=== PATIENT | male | born 1945 | race Caucasian/White ===

== ENCOUNTER 2017-10-21 20:30 | Inpatient (IN) | payer MEDICARE, OTHER ==
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
[2017-10-21] MEDS ORDERED: Sodium Chloride 0.9% 1,000 ML ONE (22:27)
[2017-10-21 22:28] LABS: BASO % 0.5 % (0.0-2.0); EOS # 0.1 K/uL (0.0-0.7); EOS % 1.4 % (0.0-4.0); HEMOGLOBIN 13.3 g/dL (12.0-18.0); LYMPH # 0.9 K/uL (1.0-4.3); LYMPH % 9.5 % (20.0-40.0); MEAN CELL VOLUME 97.6 fL (80.0-94.0); MEAN CORPUSCULAR HEMOGLOBIN 33.2 pg (27.0-31.0); MEAN CORPUSCULAR HGB CONC 34.1 g/dL (33.0-37.0); MEAN PLATELET VOLUME 8.3 fL (7.2-11.7); MONO # 0.5 K/uL (0.0-0.8); MONO % 5.1 % (0.0-10.0); NEUT # 7.6 K/uL (1.8-7.0); NEUT % 83.5 % (50.0-75.0); NRBC % 0.1 % (0.0-2.0); PLATELET COUNT 206 K/uL (130-400); RBC 4.01 Mil/uL (4.40-5.90); RED CELL DISTRIBUTION WIDTH 13.6 % (11.5-14.5); WHITE BLOOD COUNT 9.1 K/uL (4.8-10.8)
[2017-10-21] MEDS: Sodium Chloride 0.9% 1,000 ML IV SCH (22:28)
[2017-10-21 22:42] LABS: ALB/GLOB RATIO 1.2 (1.0-2.1); ALBUMIN 3.8 g/dL (3.5-5.0); ALT/SGPT 18 U/L (21-72); AST/SGOT 25 U/L (17-59); BLOOD UREA NITROGEN 11 mg/dL (9-20); CALCIUM 9.1 mg/dl (8.6-10.4); GFR AFRICAN-AMERICAN > 60; GFR NON-AFRICAN AMERICAN > 60
[2017-10-21 23:07] LABS: LYMPHOCYTE 8 % (20-40); MONOCYTE 7 % (0-10); NEUTROPHIL 81 % (50-75); PLATELET ESTIMATE NORMAL (NORMAL); REACTIVE LYMPHOCYTES 4 % (0-0); TOTAL CELLS COUNTED 100
[2017-10-21 23:09] LABS: ANISOCYTOSIS SLIGHT; OVALOCYTES SLIGHT; POIKILOCYTOSIS SLIGHT; TEARDROP CELLS SLIGHT
[2017-10-22] MEDS ORDERED: HYDROmorphone 0.5 mg/0.5 ml ISec IVP PRN (07:59)
[2017-10-22] MEDS: Sodium Chloride 0.9% 1,000 ML IV SCH ×2 (08:28→18:15)
--- NOTE | 2017-10-22 08:51 | RAD ---
Chest x-ray single frontal view History: Shortness of breath. Comparison: None available. Findings: Hyperinflation suggestive for COPD and or emphysematous changes. Biapical pleural thickening with upper lobe granulomatous changes. Bilateral hilar prominence. Tortuous aorta. Calcification in the aorta. Degenerative changes in the spine and shoulders. Impression: Hyperinflation suggestive for COPD and or emphysematous changes. Biapical pleural thickening with upper lobe granulomatous changes. Bilateral hilar prominence. Tortuous aorta. Calcification in the aorta. Degenerative changes in the spine and shoulders.
[2017-10-22] MEDS: Albuterol-Ipratrop 3 mg / 0.5 (3 ml) UD INH SCH ×4 (09:00→23:40)
--- NOTE | 2017-10-22 09:01 | RAD ---
PROCEDURE: HISTORY: fall COMPARISON: NONE TECHNIQUE: AP view of the pelvis and applicable frog leg views obtained. FINDINGS: A comminuted left intertrochanteric fracture is present. Per these mainly frontal images no marked displacement is seen. . 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 Atherosclerotic vascular calcifications present. . IMPRESSION: Left intertrochanteric comminuted fracture. No dislocation appreciated
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
[2017-10-22] MEDS ORDERED: Enoxaparin 40 mg Syringe SC SCH (10:00)
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
[2017-10-22] MEDS: Pantoprazole 40 mg EC Tab PO SCH (11:15)
[2017-10-22 11:26] LABS: HEMOGLOBIN 11.5 g/dL (12.0-18.0); MEAN CORPUSCULAR HEMOGLOBIN 33.9 pg (27.0-31.0); MEAN CORPUSCULAR HGB CONC 34.6 g/dL (33.0-37.0); MEAN PLATELET VOLUME 8.5 fL (7.2-11.7); RBC 3.41 Mil/uL (4.40-5.90); RED CELL DISTRIBUTION WIDTH 13.6 % (11.5-14.5); WHITE BLOOD COUNT 10.2 K/uL (4.8-10.8)
[2017-10-22 11:33] LABS: INR 1.1
[2017-10-22 11:43] LABS: BLOOD UREA NITROGEN 10 mg/dL (9-20); CALCIUM 8.4 mg/dl (8.6-10.4); GFR AFRICAN-AMERICAN > 60; GFR NON-AFRICAN AMERICAN > 60
[2017-10-22] MEDS ORDERED: Absorbable Gelatin Sponge Size 100 ONE (13:12)
[2017-10-22] MEDS ORDERED: ceFAZolin IV 1 gm in Dextrose 2 GM/100 ML BAG IVPB ONE (13:12)
[2017-10-22] MEDS ORDERED: Thrombin Topical 20,000 Intl Units Spray Kit TOP ONE (13:12)
--- NOTE | 2017-10-22 13:41 | CP.PCM.PN ---
<Cindy Augustin - Last Filed: 10/22/17 18:28> Subjective - Date & Time of Evaluation Date of Evaluation: 10/22/17 Time of Evaluation: 10:50 - Subjective Subjective: PGY-[address] Dixon Patient seen and examined at bedside. Patient continues to complaint of left hip pain. Patient understand that he is scheduled for OR today for orthopedic surgery today. Patient denies headache, dizziness, shortness of breath, chest pain, nausea, or vomiting. Objective - Vital Signs/Intake and Output Vital Signs (last 24 hours): Temp Pulse Resp BP Pulse Ox 97.5 F L 77 20 99/63 L 99 10/22/17 07:25 10/22/17 09:01 10/22/17 07:25 10/22/17 07:25 10/22/17 07:25 - Medications Medications: Current Medications Albuterol/Ipratropium (Duoneb 3 Mg/0.5 Mg (3 Ml) Ud) 3 ml INH RQ4 [facility] Last Admin: 10/22/17 13:17 Dose: 3 ml Hydromorphone HCl (Dilaudid) 0.5 mg IVP Q4H PRN PRN Reason: Pain, moderate (4-7) Last Admin: 10/22/17 08:22 Dose: 0.5 mg Sodium Chloride (Sodium Chloride 0.9%) 1,000 mls @ 100 mls/hr IV .Q10H [facility] Last Admin: 10/22/17 08:28 Dose: 100 mls/hr Pantoprazole Sodium (Protonix Ec Tab) 40 mg PO DAILY [facility] Last Admin: 10/22/17 11:15 Dose: Not Given Pneumococcal Polyvalent Vaccine (Pneumovax 23 Vaccine) 0.5 ml IM .ONCE ONE Stop: 10/23/17 10:01 - Labs Labs: 10/22/17 11:17 10/22/17 11:17 PT 12.0 SECONDS (9.7-12.2) 10/22/17 11:17 INR 1.1 10/22/17 11:17 APTT 27 SECONDS (21-34) 10/22/17 11:17 - Constitutional Appears: No Acute Distress - Head Exam Head Exam: ATRAUMATIC - Eye Exam Pupil Exam: NORMAL ACCOMODATION - ENT Exam ENT Exam: Mucous Membranes Moist - Neck Exam Neck Exam: Normal Inspection - Respiratory Exam Respiratory Exam: Clear to Ausculation Bilateral, NORMAL BREATHING PATTERN - Cardiovascular Exam Cardiovascular Exam: REGULAR RHYTHM, +S1, +S2. absent: Murmur - GI/Abdominal Exam GI & Abdominal Exam: Soft, Normal Bowel Sounds - Extremities Exam Extremities Exam: Tenderness. absent: Full ROM Additional comments: Left hip tenderness, limited exam due to pain - Neurological Exam Neurological Exam: Alert, Awake, Oriented x3 - Psychiatric Exam Psychiatric exam: Normal Affect, Normal Mood - Skin Skin Exam: Warm Assessment and Plan - Assessment and Plan (Free Text) Assessment: Left intertrochanteric fracture -Hip x-ray showed left intertrochanteric comminuted fracture. No dislocation appreciated. -Orthopedic surgery consult, Dr. Alba help appreciated -Planned for OR today -Cardiac clearance by cardiology -Dilaudid 0.5mg IV Q4hr prn -IVF NS @100ml/hr Prophylactic measures -Protonix 40mg po -Lovenox 40mg sc Case discussed with Dr. Dixon All management per Dr. Dixon <Mary Dixon S - Last Filed: 10/22/17 22:25> Objective - Vital Signs/Intake and Output Vital Signs (last 24 hours): Temp Pulse Resp BP Pulse Ox 98.4 F 125 H 18 99/60 L 94 L 10/22/17 20:15 10/22/17 20:15 10/22/17 20:15 10/22/17 20:15 10/22/17 20:15 Intake and Output: 10/22/17 10/23/17 18:59 06:59 Intake Total 500 Balance 500 - Medications Medications: Current Medications Albuterol/Ipratropium (Duoneb 3 Mg/0.5 Mg (3 Ml) Ud) 3 ml INH RQ4 [facility] Last Admin: 10/22/17 18:10 Dose: 3 ml Diphenhydramine HCl (Benadryl) 25 mg IVP STAT STA Stop: 10/22/17 22:24 Docusate Sodium (Colace) 100 mg PO BID [facility] Last Admin: 10/22/17 20:15 Dose: Not Given Enoxaparin Sodium (Lovenox) 40 mg SC Q24H [facility] Hydromorphone HCl (Dilaudid) 0.5 mg IVP Q4H PRN PRN Reason: Pain, severe (8-10) Sodium Chloride (Sodium Chloride 0.9%) 1,000 mls @ 100 mls/hr IV .Q10H [facility] Last Admin: 10/22/17 18:15 Dose: Not Given Cefazolin Sodium 2 gm/ Sodium (Chloride) 100 mls @ 100 mls/hr IVPB Q8H [facility] PRN Reason: Protocol Stop: 10/23/17 06:59 Last Admin: 10/22/17 21:31 Dose: 100 mls/hr Oxycodone/Acetaminophen (Percocet 5/325 Mg Tab) 1 tab PO Q4 PRN PRN Reason: Pain, moderate (4-7) Stop: 10/25/17 17:35 Pantoprazole Sodium (Protonix Ec Tab) 40 mg PO DAILY [facility] Last Admin: 10/22/17 11:15 Dose: Not Given Pneumococcal Polyvalent Vaccine (Pneumovax 23 Vaccine) 0.5 ml IM .ONCE ONE Stop: 10/23/17 10:01 - Labs Labs: 10/22/17 11:17 10/22/17 11:17 PT 12.0 SECONDS (9.7-12.2) 10/22/17 11:17 INR 1.1 10/22/17 11:17 APTT 27 SECONDS (21-34) 10/22/17 11:17 Attending/Attestation - Attestation I have personally seen and examined this patient.: Yes I have fully participated in the care of the patient.: Yes I have reviewed all pertinent clinical information, including history, physical exam and plan: Yes Notes (Text): 10/22/17 22:25 case seen an dd.w staff and resident.
[2017-10-22 13:42] LABS: URINE BACTERIA RARE (<OCC); URINE BILIRUBIN NEGATIVE (NEGATIVE); URINE BLOOD NEGATIVE (NEGATIVE); URINE CLARITY Clear (Clear); URINE COLOR Yellow (YELLOW); URINE GLUCOSE (UA) NORMAL (Normal); URINE LEUKOCYTE ESTERASE NEG Leu/uL (Negative); URINE PROTEIN NEGATIVE (NEGATIVE)
[2017-10-22] MEDS ORDERED: Propofol 10 mg/ml Inj (20 ML) ONE (14:17)
[2017-10-22] MEDS ORDERED: Phenylephrine 10 mg/ml Inj ONE (14:21)
[2017-10-22] MEDS ORDERED: ePHEDrine 50 mg/ml Inj ONE (14:25)
[2017-10-22] MEDS ORDERED: Bacitracin 50,000 UNIT in Sodium Chloride 0.9% Irrig 1,000 ML IR SCH (14:30)
[2017-10-22] MEDS ORDERED: Lactated Ringer's 1,000 ML IV ONE ×3 (14:38→18:30)
[2017-10-22] MEDS ORDERED: Bupivacaine HCl 0.25% PF (10 ml) Inj ONE (14:41)
[2017-10-22] MEDS ORDERED: Morphine 1 mg/ml preservative-free Inj(Duramorph) ONE (14:41)
--- NOTE | 2017-10-22 15:33 | CARD ---
APPROVED REPORT EXAM: Two-dimensional and M-mode echocardiogram with Doppler and color Doppler. Other Information Quality : GoodRhythm : INDICATION Pre-Op CARDIAC CLEARANCE, FRACTURE LEFT HIP 2D DIMENSIONS IVSd0.7 (0.7-1.1cm)LVDd3.9 (3.9-5.9cm) PWd0.7 (0.7-1.1cm)LVDs3.1 (2.5-4.0cm) FS (%) 21.4 % M-Mode DIMENSIONS RVDd1.78 (2.1-3.2cm)Left Atrium (MM)2.33 (2.5-4.0cm) IVSd0.85 (0.7-1.1cm)Aortic Root2.79 (2.2-3.7cm) LVDd3.67 (4.0-5.6cm)Aortic Cusp Exc.2.13 (1.5-2.0cm) PWd0.85 (0.7-1.1cm)FS (%) 49 % LVDs1.86 (2.0-3.8cm)LVEF (%)81 (>50%) Mitral Valve MV E Yuppaixr58.5cm/sMV A Dtzcxjbf70.6cm/sE/A ratio0.7 TDI E/Lateral E'0.0E/Medial E'0.0 Tricuspid Valve TR Peak Euzoqdid907hw/sTR Peak [id number] LEFT VENTRICLE The left ventricle is normal size. There is borderline concentric left ventricular hypertrophy. The left ventricular function is normal. The left ventricular ejection fraction is within the normal range. There is normal LV segmental wall motion. Transmitral Doppler flow pattern is Grade I-abnormal relaxation pattern. RIGHT VENTRICLE The right ventricle is normal size. There is normal right ventricular wall thickness. The right ventricular systolic function is normal. ATRIA The left atrium size is normal. The right atrium size is normal. The atrial septum is aneurysmal. AORTIC VALVE The aortic valve is moderately thickened. No aortic regurgitation is present. There is no aortic valvular stenosis. MITRAL VALVE The mitral valve is moderately thickened. There is no mitral valve stenosis. Mitral regurgitation is trace. TRICUSPID VALVE The tricuspid valve is normal in structure. There is trace tricuspid regurgitation. PULMONIC VALVE The pulmonary valve is normal in structure. There is no pulmonic valvular regurgitation. GREAT VESSELS The aortic root is normal in size. The IVC is normal in size and collapses >50% with inspiration. PERICARDIAL EFFUSION There is no pericardial effusion. <Conclusion> The left ventricle is normal size. There is borderline concentric left ventricular hypertrophy. The left ventricular function is normal. The left ventricular ejection fraction is within the normal range. There is normal LV segmental wall motion. Transmitral Doppler flow pattern is Grade I-abnormal relaxation pattern.
--- NOTE | 2017-10-22 16:19 | CARD ---
APPROVED REPORT EKG Measurement Heart [id number] <Conclusion> Normal sinus rhythm Normal ECG
[2017-10-22] MEDS ORDERED: Neostigmine Methylsulfate 3mg/3ml Syringe IV ONE (16:31)
--- NOTE | 2017-10-22 16:48 | CP.PCM.HP ---
Past Patient History - Past Medical History & Family History Past Medical History?: Yes - Past Social History Smoking Status: Heavy Smoker > 10 Cigarettes Daily - CARDIAC Hx Cardiac Disorders: No - PULMONARY Hx Respiratory Disorders: Yes Hx Emphysema: Yes - NEUROLOGICAL Hx Neurological Disorder: No - HEENT Hx HEENT Problems: No - RENAL Hx Chronic Kidney Disease: No - ENDOCRINE/METABOLIC Hx Endocrine Disorders: No - HEMATOLOGICAL/ONCOLOGICAL Hx Blood Disorders: No - INTEGUMENTARY Hx Dermatological Problems: No - MUSCULOSKELETAL/RHEUMATOLOGICAL Hx Musculoskeletal Disorders: No Hx Falls: No - GASTROINTESTINAL Hx Gastrointestinal Disorders: No - GENITOURINARY/GYNECOLOGICAL Hx Genitourinary Disorders: No - PSYCHIATRIC Hx Substance Use: No Other/Comment: Heavy smoker and ETOH socially - SURGICAL HISTORY Hx Surgeries: Yes Hx Herniorrhaphy: Yes - ANESTHESIA Hx Anesthesia: Yes Hx Anesthesia Reactions: No Hx Malignant Hyperthermia: No Has any member of the family had a problem w/ anesthesia?: No Meds Allergies/Adverse Reactions: Allergies Allergy/AdvReac Type Severity Reaction Status Date / Time No Known Allergies Allergy Unverified 10/21/17 20:56 Physical Exam - Constitutional Appears: Well - Head Exam Head Exam: ATRAUMATIC, NORMAL INSPECTION, NORMOCEPHALIC - Eye Exam Eye Exam: EOMI, Normal appearance, PERRL Pupil Exam: NORMAL ACCOMODATION, PERRL - ENT Exam ENT Exam: Mucous Membranes Moist, Normal Exam - Neck Exam Neck exam: Positive for: Normal Inspection - Respiratory Exam Respiratory Exam: Decreased Breath Sounds - Cardiovascular Exam Cardiovascular Exam: REGULAR RHYTHM, +S1, +S2 - GI/Abdominal Exam GI & Abdominal Exam: Diminished Bowel Sounds, Soft - Rectal Exam Rectal Exam: Deferred Results - Vital Signs Recent Vital Signs: Last Vital Signs Temp 97.5 F L 10/22/17 07:25 Pulse 77 10/22/17 09:01 Resp 20 10/22/17 07:25 BP 99/63 L 10/22/17 07:25 Pulse Ox 99 10/22/17 07:25 - Labs Result Diagrams: 10/22/17 11:17 10/22/17 11:17 Labs: Laboratory Results - last 24 hr 10/21/17 10/21/17 10/22/17 22:18 22:18 11:17 WBC 9.1 RBC 4.01 L Hgb 13.3 Hct 39.2 MCV 97.6 H MCH 33.2 H MCHC 34.1 RDW 13.6 Plt Count 206 MPV 8.3 Neut % (Auto) 83.5 H Lymph % (Auto) 9.5 L [place] % (Auto) 5.1 Eos % (Auto) 1.4 Baso % (Auto) 0.5 Neut # (Auto) 7.6 H Lymph # (Auto) 0.9 L [place] # (Auto) 0.5 Eos # (Auto) 0.1 Baso # (Auto) 0.0 Neutrophils % (Manual) 81 H Lymphocytes % (Manual) 8 L Reactive Lymphs % 4 H Monocytes % (Manual) 7 Platelet Estimate Normal Poikilocytosis (manual Slight Anisocytosis (manual) Slight Tear Drop Cells Slight Ovalocytes Slight PT INR APTT Sodium 140 Potassium 4.4 Chloride 103 Carbon Dioxide 24 Anion Gap 18 BUN 11 Creatinine 0.7 L Est GFR ( Amer) > 60 Est GFR (Non-Af Amer) > 60 Random Glucose 104 Calcium 9.1 Total Bilirubin 0.2 AST 25 ALT 18 L Alkaline Phosphatase 69 Total Protein 6.9 Albumin 3.8 Globulin 3.1 Albumin/Globulin Ratio 1.2 Urine Color Urine Clarity Urine pH Ur Specific [place] Urine Protein Urine Glucose (UA) Urine Ketones Urine Blood Urine Nitrate Urine Bilirubin Urine Urobilinogen Ur Leukocyte Esterase Urine WBC (Auto) Urine RBC (Auto) Urine Bacteria Blood Type O POSITIVE Antibody Screen Positive Antibody Identification Non Specific Antibody 10/22/17 10/22/17 10/22/17 11:17 11:17 11:17 WBC 10.2 RBC 3.41 L Hgb 11.5 L Hct 33.4 L MCV 98.0 H MCH 33.9 H MCHC 34.6 RDW 13.6 Plt Count 178 MPV 8.5 Neut % (Auto) Lymph % (Auto) [place] % (Auto) Eos % (Auto) Baso % (Auto) Neut # (Auto) Lymph # (Auto) [place] # (Auto) Eos # (Auto) Baso # (Auto) Neutrophils % (Manual) Lymphocytes % (Manual) Reactive Lymphs % Monocytes % (Manual) Platelet Estimate Poikilocytosis (manual Anisocytosis (manual) Tear Drop Cells Ovalocytes PT 12.0 INR 1.1 APTT 27 Sodium 139 Potassium 4.1 Chloride 104 Carbon Dioxide 27 Anion Gap 13 BUN 10 Creatinine 0.6 L Est GFR ( Amer) > 60 Est GFR (Non-Af Amer) > 60 Random Glucose 116 H Calcium 8.4 L Total Bilirubin AST ALT Alkaline Phosphatase Total Protein Albumin Globulin Albumin/Globulin Ratio Urine Color Urine Clarity Urine pH Ur Specific [place] Urine Protein Urine Glucose (UA) Urine Ketones Urine Blood Urine Nitrate Urine Bilirubin Urine Urobilinogen Ur Leukocyte Esterase Urine WBC (Auto) Urine RBC (Auto) Urine Bacteria Blood Type Antibody Screen Antibody Identification 10/22/17 13:35 WBC RBC Hgb Hct MCV MCH MCHC RDW Plt Count MPV Neut % (Auto) Lymph % (Auto) [place] % (Auto) Eos % (Auto) Baso % (Auto) Neut # (Auto) Lymph # (Auto) [place] # (Auto) Eos # (Auto) Baso # (Auto) Neutrophils % (Manual) Lymphocytes % (Manual) Reactive Lymphs % Monocytes % (Manual) Platelet Estimate Poikilocytosis (manual Anisocytosis (manual) Tear Drop Cells Ovalocytes PT INR APTT Sodium Potassium Chloride Carbon Dioxide Anion Gap BUN Creatinine Est GFR ( Amer) Est GFR (Non-Af Amer) Random Glucose Calcium Total Bilirubin AST ALT Alkaline Phosphatase Total Protein Albumin Globulin Albumin/Globulin Ratio Urine Color Yellow Urine Clarity Clear Urine pH 6.0 Ur Specific [place] 1.024 Urine Protein Negative Urine Glucose (UA) Normal Urine Ketones Trace Urine Blood Negative Urine Nitrate Negative Urine Bilirubin Negative Urine Urobilinogen 2.0 Ur Leukocyte Esterase Neg Urine WBC (Auto) 1 Urine RBC (Auto) 2 Urine Bacteria Rare Blood Type Antibody Screen Antibody Identification Assessment & Plan - Assessment and Plan (Free Text) Plan: Left intertrochanteric fracture -Hip x-ray showed left intertrochanteric comminuted fracture. No dislocation appreciated. -Orthopedic surgery consult, Dr. Alba help appreciated -Planned for OR today -Cardiac clearance by cardiology -Dilaudid 0.5mg IV Q4hr prn -IVF NS @100ml/hr Prophylactic measures -Protonix 40mg po -Lovenox 40mg sc
--- NOTE | 2017-10-22 16:57 | PCM.SURG1 ---
Surgeon's Initial Post Op Note - Surgeon's Notes Surgeon: Anjali Cast Associate: BALDEMAR Bartlett Type of Anesthesia: General Endo, Spinal Anesthesia Administered By: DR archer Pre-Operative Diagnosis: Displaced/comminuted intertrochanteric fx L hip Operative Findings: as above Post-Operative Diagnosis: as above Operation Performed: ORIF (interlocking/intramedullary hallie) L intertrochanteric femur fx. closed reduction fx fragments. positioning of fluoro/interpretation of video images Specimen/Specimens Removed: N/A Estimated Blood Loss: EBL {In ML}: 85 Blood Products Given: N/A Drains Used: No Drains Post-Op Condition: Good Date of Surgery/Procedure: 10/22/17 Time of Surgery/Procedure: 15:50 (14:38- [email or web address] indcution time/time in room )
[2017-10-22] MEDS: HYDROmorphone 0.5 mg/0.5 ml ISec IVP PRN ×2 (18:04→18:19)
[2017-10-22] MEDS ORDERED: Midazolam 2 MG/2 ML VIAL IVP ONE (18:28)
[2017-10-22] MEDS ORDERED: Midazolam 2 MG/2 ML VIAL ONE (18:34)
[2017-10-22] MEDS: ceFAZolin 2 GM in Sodium Chloride 0.9% 100 ML IVPB SCH (21:31)
[2017-10-22] MEDS ORDERED: DiphenhydrAMINE 50 mg/ml Inj IVP STA (22:23)
[2017-10-23] MEDS: Albuterol-Ipratrop 3 mg / 0.5 (3 ml) UD INH SCH ×6 (03:13→23:44)
[2017-10-23] MEDS: Sodium Chloride 0.9% 1,000 ML IV SCH ×3 (04:23→14:15)
[2017-10-23] MEDS: ceFAZolin 2 GM in Sodium Chloride 0.9% 100 ML IVPB SCH (05:24)
[2017-10-23 07:36] LABS: MEAN CELL VOLUME 97.9 fL (80.0-94.0); MEAN CORPUSCULAR HEMOGLOBIN 33.8 pg (27.0-31.0); MEAN CORPUSCULAR HGB CONC 34.6 g/dL (33.0-37.0); MEAN PLATELET VOLUME 8.4 fL (7.2-11.7); RBC 2.4 Mil/uL (4.40-5.90); RED CELL DISTRIBUTION WIDTH 13.4 % (11.5-14.5)
[2017-10-23 07:41] LABS: BLOOD UREA NITROGEN 10 mg/dL (9-20); CALCIUM 7.8 mg/dl (8.6-10.4); GFR AFRICAN-AMERICAN > 60; GFR NON-AFRICAN AMERICAN > 60
[2017-10-23 07:48] LABS: HEMOGLOBIN 8.1 g/dL (12.0-18.0)
--- NOTE | 2017-10-23 09:43 | RAD ---
PROCEDURE: Intraoperative Fluoroscopy. HISTORY: FX FINDINGS: Fluoroscopic assistance was provided. 72.7 seconds fluoroscopy time utilized during this procedure. Radiation dose: Total DLP = 4.45 mGy Please refer to the operative report from ANGELA Anderson.
--- NOTE | 2017-10-23 09:49 | CP.PCM.PN ---
Subjective - Date & Time of Evaluation Date of Evaluation: 10/23/17 Time of Evaluation: 09:45 - Subjective Subjective: Patent states he has a lot of pain in his left leg, but refused the pain medication. Denies CP/SOB/dizziness. Objective - Vital Signs/Intake and Output Vital Signs (last 24 hours): Temp Pulse Resp BP Pulse Ox 97.7 F 110 H 18 93/44 L 97 10/23/17 07:20 10/23/17 07:20 10/23/17 07:20 10/23/17 07:20 10/23/17 07:20 Intake and Output: 10/23/17 10/23/17 06:59 18:59 Intake Total 640 Output Total 970 Balance -330 - Medications Medications: Current Medications Albuterol/Ipratropium (Duoneb 3 Mg/0.5 Mg (3 Ml) Ud) 3 ml INH RQ4 [facility] Last Admin: 10/23/17 07:18 Dose: 3 ml Docusate Sodium (Colace) 100 mg PO BID [facility] Last Admin: 10/22/17 20:15 Dose: Not Given Enoxaparin Sodium (Lovenox) 40 mg SC Q24H [facility] Ergocalciferol (Drisdol 50,000 Intl Units Cap) 1 cap PO Q7D [facility] Hydromorphone HCl (Dilaudid) 0.5 mg IVP Q4H PRN PRN Reason: Pain, severe (8-10) Sodium Chloride (Sodium Chloride 0.9%) 1,000 mls @ 100 mls/hr IV .Q10H [facility] Last Admin: 10/23/17 05:26 Dose: 100 mls/hr Oxycodone/Acetaminophen (Percocet 5/325 Mg Tab) 1 tab PO Q4 PRN PRN Reason: Pain, moderate (4-7) Stop: 10/25/17 17:35 Pantoprazole Sodium (Protonix Ec Tab) 40 mg PO DAILY [facility] Last Admin: 10/22/17 11:15 Dose: Not Given Pneumococcal Polyvalent Vaccine (Pneumovax 23 Vaccine) 0.5 ml IM .ONCE ONE Stop: 10/23/17 10:01 - Labs Labs: 10/23/17 07:15 10/23/17 07:15 PT 12.0 SECONDS (9.7-12.2) 10/22/17 11:17 INR 1.1 10/22/17 11:17 APTT 27 SECONDS (21-34) 10/22/17 11:17 - Extremities Exam Additional comments: Left hip: Dressing intact, no visible drainage, +DP/PT pulses, calves soft NT neg homans + ROM ankle/toes Assessment and Plan (1) Closed intertrochanteric fracture of left femur Assessment & Plan: POD#1 s/p left hip ORIF PT/OT VTE proph d/c planning pt out of bed currently labs in am d/w Dr. Alba, agrees with above Status: Acute
[2017-10-23] MEDS ORDERED: Ergocalciferol 50,000 Intl Units Cap PO SCH (10:00)
[2017-10-23] MEDS ORDERED: Pneumococcal 23-Valent Vaccine IM ONE (10:00)
[2017-10-23] MEDS: Pantoprazole 40 mg EC Tab PO SCH (10:32)
--- NOTE | 2017-10-23 10:50 | CP.PCM.PN ---
Subjective - Date & Time of Evaluation Date of Evaluation: 10/23/17 Time of Evaluation: 10:10 - Subjective Subjective: PGY-[address] Dixon Patient seen and examined at bedside. Overnight patient reported to have itchiness and difficulty to urinate. Patient was given Benadryl and urinary straight cath. This morning patient complains of pain at the surgical site. Patient denies fever, chills, headache, shortness of breath, chest pain, nausea , or vomiting. Objective - Vital Signs/Intake and Output Vital Signs (last 24 hours): Temp Pulse Resp BP Pulse Ox 97.7 F 110 H 18 93/44 L 97 10/23/17 07:20 10/23/17 07:20 10/23/17 07:20 10/23/17 07:20 10/23/17 07:20 Intake and Output: 10/23/17 10/23/17 06:59 18:59 Intake Total 640 Output Total 970 Balance -330 - Medications Medications: Current Medications Albuterol/Ipratropium (Duoneb 3 Mg/0.5 Mg (3 Ml) Ud) 3 ml INH RQ4 [facility] Last Admin: 10/23/17 07:18 Dose: 3 ml Docusate Sodium (Colace) 100 mg PO BID [facility] Last Admin: 10/23/17 10:31 Dose: 100 mg Enoxaparin Sodium (Lovenox) 40 mg SC Q24H [facility] Ergocalciferol (Drisdol 50,000 Intl Units Cap) 1 cap PO Q7D [facility] Last Admin: 10/23/17 10:38 Dose: 1 cap Hydromorphone HCl (Dilaudid) 0.5 mg IVP Q4H PRN PRN Reason: Pain, severe (8-10) Sodium Chloride (Sodium Chloride 0.9%) 1,000 mls @ 100 mls/hr IV .Q10H [facility] Last Admin: 10/23/17 05:26 Dose: 100 mls/hr Oxycodone/Acetaminophen (Percocet 5/325 Mg Tab) 1 tab PO Q4 PRN PRN Reason: Pain, moderate (4-7) Stop: 10/25/17 17:35 Pantoprazole Sodium (Protonix Ec Tab) 40 mg PO DAILY [facility] Last Admin: 10/23/17 10:32 Dose: 40 mg - Labs Labs: 10/23/17 07:15 10/23/17 07:15 PT 12.0 SECONDS (9.7-12.2) 10/22/17 11:17 INR 1.1 10/22/17 11:17 APTT 27 SECONDS (21-34) 10/22/17 11:17 - Constitutional Appears: Non-toxic, No Acute Distress - Head Exam Head Exam: ATRAUMATIC, NORMAL INSPECTION - Eye Exam Eye Exam: EOMI - ENT Exam ENT Exam: Mucous Membranes Moist Additional comments: poor dentition - Neck Exam Neck Exam: Full ROM - Respiratory Exam Respiratory Exam: Clear to Ausculation Bilateral, NORMAL BREATHING PATTERN - Cardiovascular Exam Cardiovascular Exam: REGULAR RHYTHM, +S1, +S2 - GI/Abdominal Exam GI & Abdominal Exam: Soft, Normal Bowel Sounds. absent: Tenderness - Extremities Exam Additional comments: left hip dressing clean, dry, and intact - Neurological Exam Neurological Exam: Alert, Awake, Oriented x3 - Psychiatric Exam Psychiatric exam: Normal Affect, Normal Mood - Skin Skin Exam: Dry, Warm Assessment and Plan - Assessment and Plan (Free Text) Assessment: Left intertrochanteric fracture -Hip x-ray showed left intertrochanteric comminuted fracture. No dislocation appreciated. -Orthopedic surgery consult, Dr. Alba help appreciated -Planned for OR today -Cardiac clearance by cardiology -Dilaudid 0.5mg IV Q4hr prn -IVF NS @100ml/hr Difficulty of urination -Urinary straight cath prn, Bladder scan >200cc -Flomax 0.4mg po Prophylactic measures -Protonix 40mg po -Lovenox 40mg sc Case discussed with Dr. Dixon All management per Dr. Dixon
--- NOTE | 2017-10-23 12:35 | RAD ---
PROCEDURE: Left Hip X-ray Radiographs. Poor HISTORY: pt in pacu s/p IM nail COMPARISON: Preoperative examination 10/21/2017 FINDINGS: BONES: Status post open reduction internal fixation of comminuted intertrochanteric fracture proximal left femur. Intramedullary hardware reduces to anatomic Alignment major fracture fragments. JOINTS: No evidence of subluxation or dislocation. SOFT TISSUES: Normal. OTHER FINDINGS: None. IMPRESSION: Satisfactory postoperative status
--- NOTE | 2017-10-23 12:36 | RAD ---
PROCEDURE: Left femur HISTORY: pt in PACU s/p IM nail COMPARISON: Preoperative examination 10/21/2017. TECHNIQUE: Standard protocol for this study/examination. FINDINGS: Satisfactory open reduction internal fixation of comminuted intertrochanteric fracture left femur. The intramedullary hardware in satisfactory position. IMPRESSION: Satisfactory postoperative status.
[2017-10-23] MEDS: Oxycodone/Acetaminophen 5/325 mg Tab PO PRN ×2 (13:02→18:07)
--- NOTE | 2017-10-23 13:41 | CP.PCM.PN ---
Subjective - Date & Time of Evaluation Date of Evaluation: 10/23/17 Time of Evaluation: 09:40 - Subjective Subjective: clinically same Objective - Vital Signs/Intake and Output Vital Signs (last 24 hours): Temp Pulse Resp BP Pulse Ox 97.7 F 110 H 18 93/44 L 97 10/23/17 07:20 10/23/17 07:20 10/23/17 07:20 10/23/17 07:20 10/23/17 07:20 Intake and Output: 10/23/17 10/23/17 06:59 18:59 Intake Total 640 Output Total 970 Balance -330 - Medications Medications: Current Medications Albuterol/Ipratropium (Duoneb 3 Mg/0.5 Mg (3 Ml) Ud) 3 ml INH RQ4 [facility] Last Admin: 10/23/17 11:12 Dose: Not Given Docusate Sodium (Colace) 100 mg PO BID [facility] Last Admin: 10/23/17 10:31 Dose: 100 mg Enoxaparin Sodium (Lovenox) 40 mg SC Q24H [facility] Ergocalciferol (Drisdol 50,000 Intl Units Cap) 1 cap PO Q7D [facility] Last Admin: 10/23/17 10:38 Dose: 1 cap Hydromorphone HCl (Dilaudid) 0.5 mg IVP Q4H PRN PRN Reason: Pain, severe (8-10) Sodium Chloride (Sodium Chloride 0.9%) 1,000 mls @ 100 mls/hr IV .Q10H [facility] Last Admin: 10/23/17 05:26 Dose: 100 mls/hr Oxycodone/Acetaminophen (Percocet 5/325 Mg Tab) 1 tab PO Q4 PRN PRN Reason: Pain, moderate (4-7) Stop: 10/25/17 17:35 Last Admin: 10/23/17 13:02 Dose: 1 tab Pantoprazole Sodium (Protonix Ec Tab) 40 mg PO DAILY [facility] Last Admin: 10/23/17 10:32 Dose: 40 mg Tamsulosin HCl (Flomax) 0.4 mg PO DAILY [facility] - Labs Labs: 10/23/17 07:15 10/23/17 07:15 PT 12.0 SECONDS (9.7-12.2) 10/22/17 11:17 INR 1.1 10/22/17 11:17 APTT 27 SECONDS (21-34) 10/22/17 11:17 - Constitutional Appears: Well - Head Exam Head Exam: ATRAUMATIC, NORMAL INSPECTION, NORMOCEPHALIC - Eye Exam Eye Exam: EOMI, Normal appearance, PERRL Pupil Exam: NORMAL ACCOMODATION, PERRL - ENT Exam ENT Exam: Mucous Membranes Moist, Normal Exam - Neck Exam Neck Exam: Full ROM, Normal Inspection. absent: Lymphadenopathy - Respiratory Exam Respiratory Exam: Decreased Breath Sounds - Cardiovascular Exam Cardiovascular Exam: REGULAR RHYTHM, +S1, +S2 - GI/Abdominal Exam GI & Abdominal Exam: Soft, Diminished Bowel Sounds - Rectal Exam Rectal Exam: Deferred
[2017-10-23] MEDS: Enoxaparin 40 mg Syringe SC SCH (18:02)
[2017-10-24] MEDS: Sodium Chloride 0.9% 1,000 ML IV SCH ×4 (00:48→13:55)
[2017-10-24] MEDS: HYDROmorphone 0.5 mg/0.5 ml ISec IVP PRN ×2 (01:51→15:14)
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
[2017-10-24] MEDS: Albuterol-Ipratrop 3 mg / 0.5 (3 ml) UD INH SCH ×5 (03:20→20:52)
[2017-10-24] MEDS: Oxycodone/Acetaminophen 5/325 mg Tab PO PRN (06:43)
[2017-10-24 07:51] LABS: MEAN CELL VOLUME 97.4 fL (80.0-94.0); MEAN CORPUSCULAR HEMOGLOBIN 33.7 pg (27.0-31.0); MEAN CORPUSCULAR HGB CONC 34.6 g/dL (33.0-37.0); MEAN PLATELET VOLUME 8.9 fL (7.2-11.7); RBC 2.03 Mil/uL (4.40-5.90); RED CELL DISTRIBUTION WIDTH 13.3 % (11.5-14.5); WHITE BLOOD COUNT 6.4 K/uL (4.8-10.8)
[2017-10-24 08:01] LABS: HEMOGLOBIN 6.8 g/dL (12.0-18.0)
[2017-10-24 08:08] LABS: BLOOD UREA NITROGEN 6 mg/dL (9-20); CALCIUM 7.6 mg/dl (8.6-10.4); GFR AFRICAN-AMERICAN > 60; GFR NON-AFRICAN AMERICAN > 60
[2017-10-24] MEDS: Pantoprazole 40 mg EC Tab PO SCH (10:38)
--- NOTE | 2017-10-24 15:01 | CP.PCM.PN ---
Subjective - Date & Time of Evaluation Date of Evaluation: 10/24/17 Time of Evaluation: 11:20 - Subjective Subjective: clinically same Objective - Vital Signs/Intake and Output Vital Signs (last 24 hours): Temp Pulse Resp BP Pulse Ox 98.0 F 115 H 20 115/60 99 10/24/17 14:45 10/24/17 14:45 10/24/17 14:45 10/24/17 14:45 10/24/17 07:45 Intake and Output: 10/24/17 10/24/17 06:59 18:59 Intake Total 1200 0 Output Total 1850 Balance -650 0 - Medications Medications: Current Medications Albuterol/Ipratropium (Duoneb 3 Mg/0.5 Mg (3 Ml) Ud) 3 ml INH RQ4 [facility] Last Admin: 10/24/17 11:20 Dose: 3 ml Docusate Sodium (Colace) 100 mg PO BID [facility] Last Admin: 10/24/17 10:38 Dose: 100 mg Enoxaparin Sodium (Lovenox) 40 mg SC Q24H [facility] Last Admin: 10/23/17 18:02 Dose: 40 mg Ergocalciferol (Drisdol 50,000 Intl Units Cap) 1 cap PO Q7D [facility] Last Admin: 10/23/17 10:38 Dose: 1 cap Hydromorphone HCl (Dilaudid) 0.5 mg IVP Q4H PRN PRN Reason: Pain, severe (8-10) Last Admin: 10/24/17 01:51 Dose: 0.5 mg Sodium Chloride (Sodium Chloride 0.9%) 1,000 mls @ 100 mls/hr IV .Q10H [facility] Last Admin: 10/24/17 13:55 Dose: 100 mls/hr Oxycodone/Acetaminophen (Percocet 5/325 Mg Tab) 1 tab PO Q4 PRN PRN Reason: Pain, moderate (4-7) Stop: 10/25/17 17:35 Last Admin: 10/24/17 06:43 Dose: 1 tab Pantoprazole Sodium (Protonix Ec Tab) 40 mg PO DAILY [facility] Last Admin: 10/24/17 10:38 Dose: 40 mg Tamsulosin HCl (Flomax) 0.4 mg PO DAILY [facility] Last Admin: 10/24/17 10:38 Dose: 0.4 mg - Labs Labs: 10/24/17 07:35 10/24/17 07:35 PT 12.0 SECONDS (9.7-12.2) 10/22/17 11:17 INR 1.1 10/22/17 11:17 APTT 27 SECONDS (21-34) 10/22/17 11:17 - Constitutional Appears: Well - Head Exam Head Exam: ATRAUMATIC, NORMAL INSPECTION, NORMOCEPHALIC - Eye Exam Eye Exam: EOMI, Normal appearance, PERRL Pupil Exam: NORMAL ACCOMODATION, PERRL - ENT Exam ENT Exam: Mucous Membranes Moist, Normal Exam - Neck Exam Neck Exam: Full ROM, Normal Inspection. absent: Lymphadenopathy - Respiratory Exam Respiratory Exam: Decreased Breath Sounds - Cardiovascular Exam Cardiovascular Exam: REGULAR RHYTHM, +S1, +S2 - GI/Abdominal Exam GI & Abdominal Exam: Soft, Diminished Bowel Sounds - Rectal Exam Rectal Exam: Deferred
[2017-10-24] MEDS: Enoxaparin 40 mg Syringe SC SCH (18:00)
[2017-10-24 19:39] LABS: HEMOGLOBIN 7.5 g/dL (12.0-18.0); MEAN CORPUSCULAR HEMOGLOBIN 32.8 pg (27.0-31.0); MEAN CORPUSCULAR HGB CONC 34.5 g/dL (33.0-37.0); MEAN PLATELET VOLUME 8.7 fL (7.2-11.7); RBC 2.27 Mil/uL (4.40-5.90); RED CELL DISTRIBUTION WIDTH 15.9 % (11.5-14.5)
[2017-10-24 19:49] LABS: MEAN CELL VOLUME 95.1 fL (80.0-94.0)
[2017-10-25] MEDS: Sodium Chloride 0.9% 1,000 ML IV SCH (00:36)
[2017-10-25] MEDS: Oxycodone/Acetaminophen 5/325 mg Tab PO PRN ×4 (00:43→22:11)
[2017-10-25] MEDS: Albuterol-Ipratrop 3 mg / 0.5 (3 ml) UD INH SCH ×6 (00:48→19:07)
[2017-10-25 08:50] LABS: HEMOGLOBIN 8.8 g/dL (12.0-18.0); MEAN CELL VOLUME 93.3 fL (80.0-94.0); MEAN CORPUSCULAR HEMOGLOBIN 32.4 pg (27.0-31.0); MEAN CORPUSCULAR HGB CONC 34.7 g/dL (33.0-37.0); MEAN PLATELET VOLUME 8.8 fL (7.2-11.7); RBC 2.72 Mil/uL (4.40-5.90); RED CELL DISTRIBUTION WIDTH 15.6 % (11.5-14.5); WHITE BLOOD COUNT 6.7 K/uL (4.8-10.8)
[2017-10-25] MEDS: Pantoprazole 40 mg EC Tab PO SCH (09:20)
--- NOTE | 2017-10-25 11:31 | CP.PCM.PN ---
Subjective - Date & Time of Evaluation Date of Evaluation: 10/25/17 Time of Evaluation: 11:15 - Subjective Subjective: S- pt with minmal discomfort/pt awake/ alert and oriented Objective - Vital Signs/Intake and Output Vital Signs (last 24 hours): Temp Pulse Resp BP Pulse Ox 97.9 F 104 H 20 124/70 97 10/25/17 08:00 10/25/17 08:00 10/25/17 08:00 10/25/17 08:00 10/25/17 08:00 Intake and Output: 10/25/17 10/25/17 06:59 18:59 Intake Total 1300 260 Output Total 1800 Balance -500 260 - Medications Medications: Current Medications Albuterol/Ipratropium (Duoneb 3 Mg/0.5 Mg (3 Ml) Ud) [address] [facility] Last Admin: 10/25/17 07:10 Dose: 3 ml Docusate Sodium (Colace) [address] [facility] Last Admin: 10/25/17 09:19 Dose: 100 mg Enoxaparin Sodium (Lovenox) [address] [facility] Last Admin: 10/24/17 18:00 Dose: 40 mg Ergocalciferol (Drisdol 50,000 Intl Units Cap) [address] [facility] Last Admin: 10/23/17 10:38 Dose: 1 cap Hydromorphone HCl (Dilaudid) 0.5 mg IVP Q4H PRN PRN Reason: Pain, severe (8-10) Last Admin: 10/24/17 15:14 Dose: 0.5 mg Oxycodone/Acetaminophen (Percocet 5/325 Mg Tab) 1 tab PO Q4 PRN PRN Reason: Pain, moderate (4-7) Stop: 10/25/17 17:35 Last Admin: 10/25/17 06:05 Dose: 1 tab Pantoprazole Sodium (Protonix Ec Tab) [address] [facility] Last Admin: 10/25/17 09:20 Dose: 40 mg Tamsulosin HCl (Flomax) 0.[address] [facility] Last Admin: 10/25/17 09:20 Dose: 0.4 mg - Labs Labs: 10/25/17 08:26 10/24/17 07:35 PT 12.0 SECONDS (9.7-12.2) 10/22/17 11:17 INR 1.1 10/22/17 11:17 APTT 27 SECONDS (21-34) 10/22/17 11:17 - Skin Additional comments: Objective stance/gait- defrred L hip wound drssing dry and intact N/V intact no gross/progressive deficits p[t much improved Assessment and Plan - Assessment and Plan (Free Text) Assessment: A- s/p Interlocking/intrameduallry hallie R femur for intertrocjhngteric L hip fx PO- Physio D/C Dilaudid
[2017-10-25] MEDS: Enoxaparin 40 mg Syringe SC SCH (16:46)
--- NOTE | 2017-10-25 17:52 | CP.PCM.PN ---
Subjective - Date & Time of Evaluation Date of Evaluation: 10/25/17 Time of Evaluation: 10:20 - Subjective Subjective: clinically same Objective - Vital Signs/Intake and Output Vital Signs (last 24 hours): Temp Pulse Resp BP Pulse Ox 98.3 F 107 H 22 117/70 100 10/25/17 15:58 10/25/17 15:58 10/25/17 15:58 10/25/17 15:58 10/25/17 15:58 Intake and Output: 10/25/17 10/25/17 06:59 18:59 Intake Total 1300 510 Output Total 1800 Balance -500 510 - Medications Medications: Current Medications Albuterol/Ipratropium (Duoneb 3 Mg/0.5 Mg (3 Ml) Ud) 3 ml INH RQ4 [facility] Last Admin: 10/25/17 16:04 Dose: Not Given Docusate Sodium (Colace) 100 mg PO BID [facility] Last Admin: 10/25/17 16:59 Dose: 100 mg Enoxaparin Sodium (Lovenox) 40 mg SC Q24H [facility] Last Admin: 10/25/17 16:46 Dose: 40 mg Ergocalciferol (Drisdol 50,000 Intl Units Cap) 1 cap PO Q7D [facility] Last Admin: 10/23/17 10:38 Dose: 1 cap Oxycodone/Acetaminophen (Percocet 5/325 Mg Tab) 1 tab PO Q4 PRN PRN Reason: Pain, moderate (4-7) Stop: 10/28/17 11:33 Last Admin: 10/25/17 16:47 Dose: 1 tab Pantoprazole Sodium (Protonix Ec Tab) 40 mg PO DAILY [facility] Last Admin: 10/25/17 09:20 Dose: 40 mg Tamsulosin HCl (Flomax) 0.4 mg PO DAILY [facility] Last Admin: 10/25/17 09:20 Dose: 0.4 mg - Labs Labs: 10/25/17 08:26 10/24/17 07:35 PT 12.0 SECONDS (9.7-12.2) 10/22/17 11:17 INR 1.1 10/22/17 11:17 APTT 27 SECONDS (21-34) 10/22/17 11:17 - Constitutional Appears: Well - Head Exam Head Exam: ATRAUMATIC, NORMAL INSPECTION, NORMOCEPHALIC - Eye Exam Eye Exam: EOMI, Normal appearance, PERRL Pupil Exam: NORMAL ACCOMODATION, PERRL - ENT Exam ENT Exam: Mucous Membranes Moist, Normal Exam - Neck Exam Neck Exam: Full ROM, Normal Inspection. absent: Lymphadenopathy - Respiratory Exam Respiratory Exam: Decreased Breath Sounds - Cardiovascular Exam Cardiovascular Exam: REGULAR RHYTHM, +S1, +S2 - GI/Abdominal Exam GI & Abdominal Exam: Soft, Diminished Bowel Sounds - Rectal Exam Rectal Exam: Deferred
[2017-10-25 22:37] LABS: HEMOGLOBIN 9.6 g/dL (12.0-18.0); MEAN CELL VOLUME 93.8 fL (80.0-94.0); MEAN CORPUSCULAR HEMOGLOBIN 32.1 pg (27.0-31.0); MEAN CORPUSCULAR HGB CONC 34.2 g/dL (33.0-37.0); MEAN PLATELET VOLUME 8.2 fL (7.2-11.7); RBC 2.99 Mil/uL (4.40-5.90); RED CELL DISTRIBUTION WIDTH 15.5 % (11.5-14.5); WHITE BLOOD COUNT 6.5 K/uL (4.8-10.8)
[2017-10-26] MEDS: Albuterol-Ipratrop 3 mg / 0.5 (3 ml) UD INH SCH ×6 (00:50→19:36)
[2017-10-26 07:49] LABS: BASO % 0.6 % (0.0-2.0); EOS # 0.2 K/uL (0.0-0.7); EOS % 4.3 % (0.0-4.0); HEMOGLOBIN 9.9 g/dL (12.0-18.0); LYMPH % 17.9 % (20.0-40.0); MEAN CELL VOLUME 94.6 fL (80.0-94.0); MEAN CORPUSCULAR HEMOGLOBIN 32.3 pg (27.0-31.0); MEAN CORPUSCULAR HGB CONC 34.2 g/dL (33.0-37.0); MEAN PLATELET VOLUME 8.3 fL (7.2-11.7); MONO # 0.6 K/uL (0.0-0.8); MONO % 11.7 % (0.0-10.0); NEUT # 3.5 K/uL (1.8-7.0); NEUT % 65.5 % (50.0-75.0); NRBC % 0.1 % (0.0-2.0); RBC 3.05 Mil/uL (4.40-5.90); WHITE BLOOD COUNT 5.4 K/uL (4.8-10.8)
[2017-10-26 08:16] LABS: BLOOD UREA NITROGEN 4 mg/dL (9-20); CALCIUM 7.7 mg/dl (8.6-10.4); GFR AFRICAN-AMERICAN > 60; GFR NON-AFRICAN AMERICAN > 60
[2017-10-26] MEDS: Pantoprazole 40 mg EC Tab PO SCH (10:14)
--- NOTE | 2017-10-26 11:02 | CP.PCM.PN ---
<Edward Chilel S - Last Filed: 10/26/17 13:48> Subjective - Date & Time of Evaluation Date of Evaluation: 10/26/17 Time of Evaluation: 11:00 - Subjective Subjective: Progress Note for Dr. Dixon's Service Pt seen and examined at bedside. He has extensive complaints and inaccurate report of prognosis. He states that his hip will always be broken and painful. He denies chest pain/shortness of breath. His pain is controlled when he if given his medications. No fevers. Objective - Vital Signs/Intake and Output Vital Signs (last 24 hours): Temp Pulse Resp BP Pulse Ox 97.4 F L 90 18 108/63 96 10/26/17 07:00 10/26/17 07:00 10/26/17 07:00 10/26/17 07:00 10/26/17 07:00 Intake and Output: 10/26/17 10/26/17 06:59 18:59 Intake Total 240 Output Total 250 Balance -10 - Medications Medications: Current Medications Albuterol/Ipratropium (Duoneb 3 Mg/0.5 Mg (3 Ml) Ud) 3 ml INH RQ4 [facility] Last Admin: 10/26/17 08:19 Dose: 3 ml Docusate Sodium (Colace) 100 mg PO BID [facility] Last Admin: 10/26/17 10:14 Dose: 100 mg Enoxaparin Sodium (Lovenox) 40 mg SC Q24H [facility] Last Admin: 10/25/17 16:46 Dose: 40 mg Ergocalciferol (Drisdol 50,000 Intl Units Cap) 1 cap PO Q7D [facility] Last Admin: 10/23/17 10:38 Dose: 1 cap Oxycodone/Acetaminophen (Percocet 5/325 Mg Tab) 1 tab PO Q4 PRN PRN Reason: Pain, moderate (4-7) Stop: 10/28/17 11:33 Last Admin: 10/25/17 22:11 Dose: 1 tab Pantoprazole Sodium (Protonix Ec Tab) 40 mg PO DAILY [facility] Last Admin: 10/26/17 10:14 Dose: 40 mg Tamsulosin HCl (Flomax) 0.4 mg PO DAILY [facility] Last Admin: 10/26/17 10:14 Dose: 0.4 mg - Labs Labs: 10/26/17 07:37 10/26/17 07:37 PT 12.0 SECONDS (9.7-12.2) 10/22/17 11:17 INR 1.1 10/22/17 11:17 APTT 27 SECONDS (21-34) 10/22/17 11:17 - Constitutional Appears: No Acute Distress - Head Exam Head Exam: ATRAUMATIC, NORMOCEPHALIC - Eye Exam Eye Exam: absent: Normal appearance - ENT Exam ENT Exam: Mucous Membranes Moist - Respiratory Exam Respiratory Exam: Clear to Ausculation Bilateral, NORMAL BREATHING PATTERN - Cardiovascular Exam Cardiovascular Exam: REGULAR RHYTHM - GI/Abdominal Exam GI & Abdominal Exam: Soft. absent: Tenderness - Neurological Exam Neurological Exam: Alert, Awake, Oriented x3 - Psychiatric Exam Psychiatric exam: Agitated - Skin Skin Exam: Dry, Warm Additional comments: dressing c/d/i Assessment and Plan - Assessment and Plan (Free Text) Plan: Left intertrochanteric fracture -Hip x-ray showed left intertrochanteric comminuted fracture. No dislocation appreciated. -Orthopedic surgery consult, Dr. Alba help appreciated -POD#5 s/p left hip Interlocking/intrameduallry hallie for intertrochanteric L hip fx -cont VTE proph/PT/OT -f/u Dr. Alba approx 10 days after discharge [phone] -stable to d/c -ortho stable for d/c to rehab -cont VTE proph/PT/OT -f/u Dr. Alba approx 10 days after discharge [phone] -d/w Dr. Alba, agrees with above -Planned for OR today -Cardiac clearance by cardiology -Percocet 5/325 1T PO q4hrs prn Difficulty of urination -Urinary straight cath prn, Bladder scan >200cc -Flomax 0.4mg po Prophylactic measures -Protonix 40mg po -Lovenox 40mg sc -Colace 100mg PO BID plan for d/c to rehab Case discussed with Dr. Dixon All management per Dr. Dixon <Mary Dixon - Last Filed: 10/26/17 22:00> Objective - Vital Signs/Intake and Output Vital Signs (last 24 hours): Temp Pulse Resp BP Pulse Ox 98.4 F 95 H 20 113/69 95 10/26/17 15:59 10/26/17 15:59 10/26/17 15:59 10/26/17 15:59 10/26/17 15:59 Intake and Output: 10/26/17 10/27/17 18:59 06:59 Intake Total 375 Balance 375 - Medications Medications: Current Medications Albuterol/Ipratropium (Duoneb 3 Mg/0.5 Mg (3 Ml) Ud) 3 ml INH RQ4 [facility] Last Admin: 10/26/17 19:36 Dose: Not Given Docusate Sodium (Colace) 100 mg PO BID [facility] Last Admin: 10/26/17 17:44 Dose: 100 mg Enoxaparin Sodium (Lovenox) 40 mg SC Q24H [facility] Last Admin: 10/26/17 17:44 Dose: 40 mg Ergocalciferol (Drisdol 50,000 Intl Units Cap) 1 cap PO Q7D [facility] Last Admin: 10/23/17 10:38 Dose: 1 cap Oxycodone/Acetaminophen (Percocet 5/325 Mg Tab) 1 tab PO Q4 PRN PRN Reason: Pain, moderate (4-7) Stop: 10/28/17 11:33 Last Admin: 10/25/17 22:11 Dose: 1 tab Pantoprazole Sodium (Protonix Ec Tab) 40 mg PO DAILY [facility] Last Admin: 10/26/17 10:14 Dose: 40 mg Tamsulosin HCl (Flomax) 0.4 mg PO DAILY [facility] Last Admin: 10/26/17 10:14 Dose: 0.4 mg - Labs Labs: 10/26/17 19:56 10/26/17 07:37 PT 12.0 SECONDS (9.7-12.2) 10/22/17 11:17 INR 1.1 10/22/17 11:17 APTT 27 SECONDS (21-34) 10/22/17 11:17 Assessment and Plan (1) Closed intertrochanteric fracture of left femur Status: Acute (2) Fracture of left hip Status: Acute Attending/Attestation - Attestation I have personally seen and examined this patient.: Yes I have fully participated in the care of the patient.: Yes I have reviewed all pertinent clinical information, including history, physical exam and plan: Yes Notes (Text): case seen and d.w staff and resident, concurred with finding and management..case seen and d.w staff and resident, concurred with finding and management..case seen and d.w staff and resident, concurred with finding and management..
--- NOTE | 2017-10-26 13:18 | CP.PCM.PN ---
Subjective - Date & Time of Evaluation Date of Evaluation: 10/26/17 Time of Evaluation: 13:16 - Subjective Subjective: Patient states pain is improving. Denies CP/SOB/dizziness. Objective - Vital Signs/Intake and Output Vital Signs (last 24 hours): Temp Pulse Resp BP Pulse Ox 97.4 F L 90 18 108/63 96 10/26/17 07:00 10/26/17 07:00 10/26/17 07:00 10/26/17 07:00 10/26/17 07:00 Intake and Output: 10/26/17 10/26/17 06:59 18:59 Intake Total 240 Output Total 250 Balance -10 - Medications Medications: Current Medications Albuterol/Ipratropium (Duoneb 3 Mg/0.5 Mg (3 Ml) Ud) 3 ml INH RQ4 [facility] Last Admin: 10/26/17 13:07 Dose: Not Given Docusate Sodium (Colace) 100 mg PO BID [facility] Last Admin: 10/26/17 10:14 Dose: 100 mg Enoxaparin Sodium (Lovenox) 40 mg SC Q24H [facility] Last Admin: 10/25/17 16:46 Dose: 40 mg Ergocalciferol (Drisdol 50,000 Intl Units Cap) 1 cap PO Q7D [facility] Last Admin: 10/23/17 10:38 Dose: 1 cap Oxycodone/Acetaminophen (Percocet 5/325 Mg Tab) 1 tab PO Q4 PRN PRN Reason: Pain, moderate (4-7) Stop: 10/28/17 11:33 Last Admin: 10/25/17 22:11 Dose: 1 tab Pantoprazole Sodium (Protonix Ec Tab) 40 mg PO DAILY [facility] Last Admin: 10/26/17 10:14 Dose: 40 mg Tamsulosin HCl (Flomax) 0.4 mg PO DAILY [facility] Last Admin: 10/26/17 10:14 Dose: 0.4 mg - Labs Labs: 10/26/17 07:37 10/26/17 07:37 PT 12.0 SECONDS (9.7-12.2) 10/22/17 11:17 INR 1.1 10/22/17 11:17 APTT 27 SECONDS (21-34) 10/22/17 11:17 - Extremities Exam Additional comments: Left hip dressing change: mod sang drainage on dressing, incision intact, no active drainage, mild swelling, no erythema. +ROM ankle/toes,s ensat ion intact calves soft NT neg homans Assessment and Plan (1) Closed intertrochanteric fracture of left femur Assessment & Plan: POD#5 s/p left hip IM nail -ortho stable for d/c to rehab -cont VTE proph/PT/OT -f/u Dr. Alba approx 10 days after discharge [phone] -d/w Dr. Alba, agrees with above Status: Acute
--- NOTE | 2017-10-26 17:30 | CP.PCM.PN ---
Subjective - Date & Time of Evaluation Date of Evaluation: 10/26/17 Time of Evaluation: 11:20 - Subjective Subjective: clinically same Objective - Vital Signs/Intake and Output Vital Signs (last 24 hours): Temp Pulse Resp BP Pulse Ox 98.4 F 95 H 20 113/69 95 10/26/17 15:59 10/26/17 15:59 10/26/17 15:59 10/26/17 15:59 10/26/17 15:59 Intake and Output: 10/26/17 10/26/17 06:59 18:59 Intake Total 240 375 Output Total 250 Balance -10 375 - Medications Medications: Current Medications Albuterol/Ipratropium (Duoneb 3 Mg/0.5 Mg (3 Ml) Ud) 3 ml INH RQ4 [facility] Last Admin: 10/26/17 15:32 Dose: Not Given Docusate Sodium (Colace) 100 mg PO BID [facility] Last Admin: 10/26/17 10:14 Dose: 100 mg Enoxaparin Sodium (Lovenox) 40 mg SC Q24H [facility] Last Admin: 10/25/17 16:46 Dose: 40 mg Ergocalciferol (Drisdol 50,000 Intl Units Cap) 1 cap PO Q7D [facility] Last Admin: 10/23/17 10:38 Dose: 1 cap Oxycodone/Acetaminophen (Percocet 5/325 Mg Tab) 1 tab PO Q4 PRN PRN Reason: Pain, moderate (4-7) Stop: 10/28/17 11:33 Last Admin: 10/25/17 22:11 Dose: 1 tab Pantoprazole Sodium (Protonix Ec Tab) 40 mg PO DAILY [facility] Last Admin: 10/26/17 10:14 Dose: 40 mg Tamsulosin HCl (Flomax) 0.4 mg PO DAILY [facility] Last Admin: 10/26/17 10:14 Dose: 0.4 mg - Labs Labs: 10/26/17 07:37 10/26/17 07:37 PT 12.0 SECONDS (9.7-12.2) 10/22/17 11:17 INR 1.1 10/22/17 11:17 APTT 27 SECONDS (21-34) 10/22/17 11:17 - Constitutional Appears: Well - Head Exam Head Exam: ATRAUMATIC, NORMAL INSPECTION, NORMOCEPHALIC - Eye Exam Eye Exam: EOMI, Normal appearance, PERRL Pupil Exam: NORMAL ACCOMODATION, PERRL - ENT Exam ENT Exam: Mucous Membranes Moist, Normal Exam - Neck Exam Neck Exam: Full ROM, Normal Inspection. absent: Lymphadenopathy - Respiratory Exam Respiratory Exam: Decreased Breath Sounds - Cardiovascular Exam Cardiovascular Exam: REGULAR RHYTHM, +S1, +S2 - GI/Abdominal Exam GI & Abdominal Exam: Soft, Diminished Bowel Sounds - Rectal Exam Rectal Exam: Deferred Assessment and Plan (1) Closed intertrochanteric fracture of left femur Status: Acute (2) Fracture of left hip Status: Acute - Assessment and Plan (Free Text) Plan: Awaiting the subacute rehab replacement Status post PRBCs Hemoglobin is 9.1 and 26.8 Orthopedic follow-up As ordered Left intertrochanteric fracture -Hip x-ray showed left intertrochanteric comminuted fracture. No dislocation appreciated. -Orthopedic surgery consult, Dr. Alba help appreciated -POD#5 s/p left hip Interlocking/intrameduallry hallie for intertrochanteric L hip fx -cont VTE proph/PT/OT -f/u Dr. Alba approx 10 days after discharge [phone] -stable to d/c -ortho stable for d/c to rehab -cont VTE proph/PT/OT -f/u Dr. Alab approx 10 days after discharge [phone] -d/w Dr. Alba, agrees with above -Planned for OR today -Cardiac clearance by cardiology -Percocet 5/325 1T PO q4hrs prn Difficulty of urination -Urinary straight cath prn, Bladder scan >200cc -Flomax 0.4mg po Prophylactic measures -Protonix 40mg po -Lovenox 40mg sc -Colace 100mg PO BID plan for d/c to rehab
[2017-10-26] MEDS: Enoxaparin 40 mg Syringe SC SCH (17:44)
[2017-10-26 20:06] LABS: HEMOGLOBIN 9.1 g/dL (12.0-18.0); MEAN CORPUSCULAR HEMOGLOBIN 32.3 pg (27.0-31.0); MEAN PLATELET VOLUME 8.2 fL (7.2-11.7); RBC 2.83 Mil/uL (4.40-5.90); RED CELL DISTRIBUTION WIDTH 15.4 % (11.5-14.5); WHITE BLOOD COUNT 5.4 K/uL (4.8-10.8)
[2017-10-27] MEDS: Albuterol-Ipratrop 3 mg / 0.5 (3 ml) UD INH SCH ×5 (00:29→15:30)
[2017-10-27 06:32] LABS: BASO % 0.7 % (0.0-2.0); EOS # 0.2 K/uL (0.0-0.7); EOS % 4.5 % (0.0-4.0); HEMOGLOBIN 9.2 g/dL (12.0-18.0); LYMPH # 0.8 K/uL (1.0-4.3); MEAN CELL VOLUME 94.6 fL (80.0-94.0); MEAN CORPUSCULAR HEMOGLOBIN 32.5 pg (27.0-31.0); MEAN CORPUSCULAR HGB CONC 34.3 g/dL (33.0-37.0); MEAN PLATELET VOLUME 7.7 fL (7.2-11.7); MONO # 0.7 K/uL (0.0-0.8); MONO % 14.4 % (0.0-10.0); NEUT # 3.1 K/uL (1.8-7.0); NEUT % 64.4 % (50.0-75.0); RBC 2.85 Mil/uL (4.40-5.90); RED CELL DISTRIBUTION WIDTH 14.9 % (11.5-14.5); WHITE BLOOD COUNT 4.7 K/uL (4.8-10.8)
[2017-10-27 06:58] LABS: BLOOD UREA NITROGEN 7 mg/dL (9-20); CALCIUM 8.2 mg/dl (8.6-10.4); GFR AFRICAN-AMERICAN > 60; GFR NON-AFRICAN AMERICAN > 60
[2017-10-27] MEDS: Pantoprazole 40 mg EC Tab PO SCH (09:59)
[2017-10-27] MEDS: Oxycodone/Acetaminophen 5/325 mg Tab PO PRN (10:35)
--- NOTE | 2017-10-27 12:21 | CP.PCM.PN ---
Subjective - Date & Time of Evaluation Date of Evaluation: 10/27/17 Time of Evaluation: 12:16 - Subjective Subjective: Patient states pain is improving. Tolerating PT well. No CP/SOB/dizziness. Objective - Vital Signs/Intake and Output Vital Signs (last 24 hours): Temp Pulse Resp BP Pulse Ox 97.8 F 83 18 109/64 98 10/27/17 07:35 10/27/17 07:35 10/27/17 07:35 10/27/17 07:35 10/27/17 07:35 Intake and Output: 10/27/17 10/27/17 06:59 18:59 Output Total 550 Balance -550 - Medications Medications: Current Medications Albuterol/Ipratropium (Duoneb 3 Mg/0.5 Mg (3 Ml) Ud) 3 ml INH RQ4 [facility] Last Admin: 10/27/17 11:12 Dose: 3 ml Docusate Sodium (Colace) 100 mg PO BID [facility] Last Admin: 10/27/17 09:58 Dose: 100 mg Enoxaparin Sodium (Lovenox) 40 mg SC Q24H [facility] Last Admin: 10/26/17 17:44 Dose: 40 mg Ergocalciferol (Drisdol 50,000 Intl Units Cap) 1 cap PO Q7D [facility] Last Admin: 10/23/17 10:38 Dose: 1 cap Oxycodone/Acetaminophen (Percocet 5/325 Mg Tab) 1 tab PO Q4 PRN PRN Reason: Pain, moderate (4-7) Stop: 10/28/17 11:33 Last Admin: 10/27/17 10:35 Dose: 1 tab Pantoprazole Sodium (Protonix Ec Tab) 40 mg PO DAILY [facility] Last Admin: 10/27/17 09:59 Dose: 40 mg Tamsulosin HCl (Flomax) 0.4 mg PO DAILY [facility] Last Admin: 10/27/17 09:57 Dose: 0.4 mg - Labs Labs: 10/27/17 06:19 10/27/17 06:19 PT 12.0 SECONDS (9.7-12.2) 10/22/17 11:17 INR 1.1 10/22/17 11:17 APTT 27 SECONDS (21-34) 10/22/17 11:17 - Extremities Exam Additional comments: LLE: incisions intact, scant drainage, thigh soft +ROM ankle/toes, sensation intact calves soft NT neg homans +DP pulses Assessment and Plan (1) Closed intertrochanteric fracture of left femur Assessment & Plan: POD#5 s/p left hip IM nail ortho stable for d/c f/u Dr. Alba 7-10 days call for appointment continue VTE proph continue PWB d/w DR. Alba, agrees with above Status: Acute
--- NOTE | 2017-10-27 15:17 | CP.PCM.PN ---
Subjective - Date & Time of Evaluation Date of Evaluation: 10/27/17 Time of Evaluation: 15:14 - Subjective Subjective: Progress Note for Dr. Dixon's Service Pt seen and examined at bedside. He is working with PT at bedside to gain mobility. He complains of pain when active however when he lies still he is ok. He denies F/C/N/V/CP/SOB/D/C. Objective - Vital Signs/Intake and Output Vital Signs (last 24 hours): Temp Pulse Resp BP Pulse Ox 97.8 F 83 18 109/64 98 10/27/17 07:35 10/27/17 07:35 10/27/17 07:35 10/27/17 07:35 10/27/17 07:35 Intake and Output: 10/27/17 10/27/17 06:59 18:59 Intake Total 400 Output Total 550 Balance -550 400 - Medications Medications: Current Medications Albuterol/Ipratropium (Duoneb 3 Mg/0.5 Mg (3 Ml) Ud) 3 ml INH RQ4 [facility] Last Admin: 10/27/17 11:12 Dose: 3 ml Docusate Sodium (Colace) 100 mg PO BID [facility] Last Admin: 10/27/17 09:58 Dose: 100 mg Enoxaparin Sodium (Lovenox) 40 mg SC Q24H [facility] Last Admin: 10/26/17 17:44 Dose: 40 mg Ergocalciferol (Drisdol 50,000 Intl Units Cap) 1 cap PO Q7D [facility] Last Admin: 10/23/17 10:38 Dose: 1 cap Oxycodone/Acetaminophen (Percocet 5/325 Mg Tab) 1 tab PO Q4 PRN PRN Reason: Pain, moderate (4-7) Stop: 10/28/17 11:33 Last Admin: 10/27/17 10:35 Dose: 1 tab Pantoprazole Sodium (Protonix Ec Tab) 40 mg PO DAILY [facility] Last Admin: 10/27/17 09:59 Dose: 40 mg Tamsulosin HCl (Flomax) 0.4 mg PO DAILY [facility] Last Admin: 10/27/17 09:57 Dose: 0.4 mg - Labs Labs: 10/27/17 06:19 10/27/17 06:19 PT 12.0 SECONDS (9.7-12.2) 10/22/17 11:17 INR 1.1 10/22/17 11:17 APTT 27 SECONDS (21-34) 10/22/17 11:17 - Head Exam Head Exam: ATRAUMATIC, NORMOCEPHALIC - ENT Exam ENT Exam: Mucous Membranes Moist - Respiratory Exam Respiratory Exam: Clear to Ausculation Bilateral, NORMAL BREATHING PATTERN - Cardiovascular Exam Cardiovascular Exam: REGULAR RHYTHM - GI/Abdominal Exam GI & Abdominal Exam: Soft. absent: Tenderness - Neurological Exam Neurological Exam: Alert, Awake, Oriented x3 - Psychiatric Exam Psychiatric exam: Normal Affect, Normal Mood - Skin Skin Exam: Dry, Warm Assessment and Plan - Assessment and Plan (Free Text) Plan: Left intertrochanteric fracture -Hip x-ray showed left intertrochanteric comminuted fracture. No dislocation appreciated. -Orthopedic surgery consult, Dr. Alba help appreciated -POD#6 s/p left hip Interlocking/intrameduallry hallie for intertrochanteric L hip fx -cont VTE proph/PT/OT -f/u Dr. Alba approx 10 days after discharge [phone] -stable to d/c -ortho stable for d/c to rehab -cont VTE proph/PT/OT -f/u Dr. Alba approx 10 days after discharge [phone] -d/w Dr. Alba, agrees with above -Planned for OR today -Cardiac clearance by cardiology -Percocet 5/325 1T PO q4hrs prn Difficulty of urination -Urinary straight cath prn, Bladder scan >200cc -Flomax 0.4mg po Prophylactic measures -Protonix 40mg po -Lovenox 40mg sc -Colace 100mg PO BID Patient is progressing appropriately with PT. Planning for d/c to rehab- working to find placement. Case discussed with Dr. Dixon All management per Dr. Dixon
--- NOTE | 2017-10-27 15:40 | CP.PCM.PN ---
Subjective - Date & Time of Evaluation Date of Evaluation: 10/27/17 Time of Evaluation: 15:38 - Subjective Subjective: Pt is ok for discharge as per Dr. Lundy who has spoken to Dr. Dixon. Case discussed with Dr. Lundy- patient going to [facility] for rehab Objective - Vital Signs/Intake and Output Vital Signs (last 24 hours): Temp Pulse Resp BP Pulse Ox 97.8 F 83 18 109/64 98 10/27/17 07:35 10/27/17 07:35 10/27/17 07:35 10/27/17 07:35 10/27/17 07:35 Intake and Output: 10/27/17 10/27/17 06:59 18:59 Intake Total 400 Output Total 550 Balance -550 400 - Medications Medications: Current Medications Albuterol/Ipratropium (Duoneb 3 Mg/0.5 Mg (3 Ml) Ud) 3 ml INH RQ4 [facility] Last Admin: 10/27/17 15:30 Dose: 3 ml Docusate Sodium (Colace) 100 mg PO BID [facility] Last Admin: 10/27/17 09:58 Dose: 100 mg Enoxaparin Sodium (Lovenox) 40 mg SC Q24H [facility] Last Admin: 10/26/17 17:44 Dose: 40 mg Ergocalciferol (Drisdol 50,000 Intl Units Cap) 1 cap PO Q7D [facility] Last Admin: 10/23/17 10:38 Dose: 1 cap Oxycodone/Acetaminophen (Percocet 5/325 Mg Tab) 1 tab PO Q4 PRN PRN Reason: Pain, moderate (4-7) Stop: 10/28/17 11:33 Last Admin: 10/27/17 10:35 Dose: 1 tab Pantoprazole Sodium (Protonix Ec Tab) 40 mg PO DAILY [facility] Last Admin: 10/27/17 09:59 Dose: 40 mg Tamsulosin HCl (Flomax) 0.4 mg PO DAILY [facility] Last Admin: 10/27/17 09:57 Dose: 0.4 mg - Labs Labs: 10/27/17 06:19 10/27/17 06:19 PT 12.0 SECONDS (9.7-12.2) 10/22/17 11:17 INR 1.1 10/22/17 11:17 APTT 27 SECONDS (21-34) 10/22/17 11:17
--- NOTE | 2017-10-27 15:48 | CP.PCM.PN ---
Subjective - Date & Time of Evaluation Date of Evaluation: 10/27/17 Time of Evaluation: 12:00 - Subjective Subjective: clinically same Objective - Vital Signs/Intake and Output Vital Signs (last 24 hours): Temp Pulse Resp BP Pulse Ox 97.8 F 83 18 109/64 98 10/27/17 07:35 10/27/17 07:35 10/27/17 07:35 10/27/17 07:35 10/27/17 07:35 Intake and Output: 10/27/17 10/27/17 06:59 18:59 Intake Total 400 Output Total 550 Balance -550 400 - Medications Medications: Current Medications Albuterol/Ipratropium (Duoneb 3 Mg/0.5 Mg (3 Ml) Ud) 3 ml INH RQ4 [facility] Last Admin: 10/27/17 15:30 Dose: 3 ml Docusate Sodium (Colace) 100 mg PO BID [facility] Last Admin: 10/27/17 09:58 Dose: 100 mg Enoxaparin Sodium (Lovenox) 40 mg SC Q24H [facility] Last Admin: 10/26/17 17:44 Dose: 40 mg Ergocalciferol (Drisdol 50,000 Intl Units Cap) 1 cap PO Q7D [facility] Last Admin: 10/23/17 10:38 Dose: 1 cap Oxycodone/Acetaminophen (Percocet 5/325 Mg Tab) 1 tab PO Q4 PRN PRN Reason: Pain, moderate (4-7) Stop: 10/28/17 11:33 Last Admin: 10/27/17 10:35 Dose: 1 tab Pantoprazole Sodium (Protonix Ec Tab) 40 mg PO DAILY [facility] Last Admin: 10/27/17 09:59 Dose: 40 mg Tamsulosin HCl (Flomax) 0.4 mg PO DAILY [facility] Last Admin: 10/27/17 09:57 Dose: 0.4 mg - Labs Labs: 10/27/17 06:19 10/27/17 06:19 PT 12.0 SECONDS (9.7-12.2) 10/22/17 11:17 INR 1.1 10/22/17 11:17 APTT 27 SECONDS (21-34) 10/22/17 11:17 - Constitutional Appears: Well - Head Exam Head Exam: ATRAUMATIC, NORMAL INSPECTION, NORMOCEPHALIC - Eye Exam Eye Exam: EOMI, Normal appearance, PERRL Pupil Exam: NORMAL ACCOMODATION, PERRL - ENT Exam ENT Exam: Mucous Membranes Moist, Normal Exam - Neck Exam Neck Exam: Full ROM, Normal Inspection. absent: Lymphadenopathy - Respiratory Exam Respiratory Exam: Decreased Breath Sounds - Cardiovascular Exam Cardiovascular Exam: REGULAR RHYTHM, +S1, +S2 - GI/Abdominal Exam GI & Abdominal Exam: Soft, Diminished Bowel Sounds - Rectal Exam Rectal Exam: Deferred Assessment and Plan (1) Closed intertrochanteric fracture of left femur Status: Acute (2) Fracture of left hip Status: Acute
[2017-10-27 16:33] VITALS: BP 94/57; PULSE 98; RESP 20; TEMP 98.6; O2SAT 95
[2017-10-27] MEDS: Enoxaparin 40 mg Syringe SC SCH (17:32)
== END 2017-10-27 18:42 | DRG 482 ==
LOC: C.ER 20:30 → C.6T 23:35
PROVIDERS: ADMIT Internal Medicine Nephrology; ATTEND Internal Medicine Nephrology
PROC: 0QS7XZZ Reposition Left Upper Femur, External Approach (ICD-10-PCS; 2017-10-22)
PROC: 0QS706Z Reposition Left Upper Femur with Intramedullary Internal Fixation Device, Open Approach (ICD-10-PCS; principal; 2017-10-22 14:00)
DX: S72.142A Displaced intertrochanteric fracture of left femur, initial encounter for closed fracture (principal); J43.9 Emphysema, unspecified; F17.200 Nicotine dependence, unspecified, uncomplicated; I10 Essential (primary) hypertension; J45.909 Unspecified asthma, uncomplicated; V02.99XA Pedestrian with other conveyance injured in collision with two- or three-wheeled motor vehicle, unspecified whether traffic or nontraffic accident, initial encounter